=== PATIENT | female | born 1995 | race Caucasian/White ===

== ENCOUNTER 2016-09-01 01:52 | Emergency (ER) | payer OTHER ==
[~2016-09-01] VITALS: Ht 172.7 cm; Wt 51.9 kg
[2016-09-01 01:54] VITALS: BP 133/80
[2016-09-01] MEDS ORDERED: KETOROLAC 30 MG/1 ML IM ONE (03:30)
[2016-09-01] MEDS ORDERED: KETOROLAC 30 MG/1 ML ONE (03:31)
== END 2016-09-01 03:43 | disposition home or self-care (01) ==
LOC: ED 03:39
DX: K08.89 Other specified disorders of teeth and supporting structures (principal)
CPT/HCPCS: 96372; 99283; J1885